=== PATIENT | female | born 1985 | race Two or more races ===

== ENCOUNTER 2018-02-18 17:38 | Emergency (ER) | payer OTHER ==
[~2018-02-18] VITALS: Ht 167.6 cm; Wt 72.6 kg
[2018-02-18 18:50] VITALS: BP 109/68
[2018-02-18] MEDS ORDERED: KETOROLAC 30 MG/ML VIAL. IM ONE (19:00)
[2018-02-18] MEDS ORDERED: BUTA1TAB23 PO (20:02)
--- NOTE | 2018-02-18 20:02 | PHYS DOC ---
Past Medical History Past Medical History: PA, Migraines Past Surgical History: Angioplasty Additional Past Surgical Histo: HEART CATH Alcohol Use: None Drug Use: None Adult General Chief Complaint Chief Complaint: HEADACHE HPI HPI Patient is a 32 year old female who presents to the emergency room with complaints of a headache for the last 3 days. She reports a history of having migraines. States that the vision in her left eye has seemed a little blurry with spots. She states that the pain is in the left frontal portion of her head. She reports nausea without any vomiting. Patient also states that she feels lightheaded and that light has been bothering her eyes. Currently she reports her pain as a 7 out of 10 on the pain scale. She states that she is taking Tylenol without any help for relief of her pain. She states that her last menstrual cycle was on February 10, 2018. These headaches are like her previous migraines. She denies any recent head injury or trauma. Review of Systems Review of Systems Constitutional: Denies fever or chills [] Eyes: Denies change in redness, or eye pain; reports blurry vision and seeing spots in the left eye, and photosensitivity HENT: Denies nasal congestion or sore throat reports headache in the left [place] area [] Respiratory: Denies cough or shortness of breath [] GI: Denies abdominal pain, or vomiting; reports nausea, Neurologic: Denies focal weakness; reports headache and photophobia Current Medications Current Medications Current Medications Medications (Trade) Dose Ordered Sig/Salvador Start Time Stop Time Status Last Admin Dose Admin Ketorolac Tromethamine (Toradol 30mg Vial) 30 mg 1X ONCE 02/18/18 19:00 02/18/18 19:01 DC 02/18/18 19:16 30 MG Allergies Allergies Allergies Coded Allergies Type Severity Reaction Last Updated Verified No Known Drug Allergies 10/20/13 No Physical Exam Physical Exam Constitutional: Well developed, well nourished, no acute distress, non-toxic appearance. [] HENT: Normocephalic, atraumatic, bilateral external ears normal, oropharynx moist, no oral exudates, nose normal. [] Eyes: PERRLA, EOMI, conjunctiva normal, no discharge no nystagmus. [] Neck: Normal range of motion, no tenderness, supple, no stridor. [] Skin: Warm, dry, no erythema, no rash. [] Extremities: No tenderness, no cyanosis, no clubbing, ROM intact, no edema. [] Neurologic: Alert and oriented X 3, normal motor function, normal sensory function, no focal deficits noted. [] Psychologic: Affect normal, judgement normal, mood normal. [] Current Patient Data Vital Signs Vital Signs Date Time Temp Pulse Resp B/P (MAP) Pulse Ox O2 Delivery O2 Flow Rate FiO2 02/18/18 18:50 98.9 78 16 109/68 (82) 99 Room Air 98.9 EKG EKG [] Radiology/Procedures Radiology/Procedures [] Course & Med Decision Making Course & Med Decision Making Pertinent Labs and Imaging studies reviewed. (See chart for details) Patient is a 32-year-old female who presents to the emergency room with complaints of a headache for 3 days with history of migraines. Vital signs were stable in the emergency department. Patient reported relief of her pain after an IM injection of 30 mg of Toradol. Patient reported that these symptoms are similar to previous symptoms experienced when she has migraines. Patient verbalized an understanding of home care, medications, follow-up, and return to ED instructions and was in agreement with the plan of care. Attending physician attestation: I was working at the time of this patient's ER visit and was available for consultation, but did not personally interview, examine, or directly take part in the patient's care. DO Betsy Becker Disclaimer Betsy Disclaimer This electronic medical record was generated, in whole or in part, using a voice recognition dictation system. Departure Departure Impression: Primary Impression: Headache Disposition: 01 HOME, SELF-CARE Condition: STABLE Referrals: UNKNOWN PCP NAME (PCP) Patient Instructions: General Headache Without Cause, Brak-ed-Ggro Additional Instructions: Fill prescription and use as directed. Go home and rest in a dark room. Follow up with your primary care doctor in 1-2 days. Return to the ER if your symptoms worsen. Scripts Butalb/Acetaminophen/Caffeine ([id number] [id number]) 1 Each Tablet 1-2 CAP PO Q4HRS PRN for PAIN MDD 6 caps per day for 3 Days, #15 TAB 0 Refills Prov: SABA ESPINOSA APRN 02/18/18 Problem Qualifiers Primary Impression: Headache Headache type: unspecified Headache chronicity pattern: unspecified pattern Intractability: not intractable Qualified Codes: R51 - Headache SABA ESPINOSA APRN Feb 18, 2018 20:02 ERIC LYONS DO Feb 24, 2018 06:29
== END 2018-02-18 20:08 | disposition home or self-care (01) ==
LOC: ER 17:38
DX: R51 Headache (principal)
CPT/HCPCS: 96372; 99283; J1885